=== PATIENT | female | born 1985 | race African-American/Black ===

== ENCOUNTER 2017-06-23 12:20 | Inpatient (IN) | payer OTHER ==
[2017-06-23 12:30] VITALS: BMI 16.5
--- NOTE | 2017-06-23 12:39 | PDOC ---
Attending Attestation - Resident Resident Name: Carlos Wilson - ED Attending Attestation I have performed the following: I have examined & evaluated the patient, The case was reviewed & discussed with the resident, I agree w/resident's findings & plan, Exceptions are as noted - HPI HPI: 06/23/17 13:34 31yo F hx MVP, chronic intermittent CP p/w CP. Took Justine last night at 9pm and a 1/5 of krystal. At 7am this morning, pt began to have chest tightness and LSCP, non radiating non positional non exertional a/w SOB, and lightheadness. Denies N/V, F/C. Took nabumetone for pain, which improved the pain. Pt has intermittent CP for 5 years, used to be monthly, now weekly, CP lasts about 1-3 days. Pain she has today is identical in quality to pain she has intermittently for the last 5 years. Saw PCP on 05/28 who gave her nabumatone for "inflammation " around the heart. Has never seen a supervisor fiber locking, but was just referred to one and is currently being scheduled for an echocardiogram. Not on any OCPs, no recent travel or immobility. She reports drinking 750mL vodka daily but is trying to cut down. - Physicial Exam PE: 06/23/17 13:39 GENERAL: Awake, alert, and fully oriented, in no acute distress HEAD: No signs of trauma EYES: PERRLA, EOMI, sclera anicteric, conjunctiva clear ENT: Auricles normal inspection, hearing grossly normal, nares patent, oropharynx clear without exudates. Moist mucosa NECK: Normal ROM, supple, no lymphadenopathy, JVD, or masses LUNGS: Breath sounds equal, clear to auscultation bilaterally. No wheezes, and no crackles HEART: Regular rate and rhythm, normal S1 and S2, no murmurs, rubs or gallops, + ttp to L chest wall ABDOMEN: Soft, nontender, normoactive bowel sounds. No guarding, no rebound. No masses EXTREMITIES: Normal range of motion, no edema. No clubbing or cyanosis. No cords, erythema, or tenderness NEUROLOGICAL: Normal speech, cranial nerves intact, negative pronator drift, 5/ 5 strength in all 4 extremities, normal sensation to light touch in all 4 extremities, normal cerebellar exam, normal gait, normal reflexes and tone SKIN: Warm, Dry, normal turgor, no rashes or lesions noted. 06/23/17 14:07 Twelve-lead EKG was performed and reviewed by me: NSR, rate, L axis deviation, no FERNIE - Medical Decision Making 06/23/17 14:01 31-year-old female history of MVP presents with acute on chronic chest pain. Exam with reproducible left chest wall pain and otherwise unremarkable. EKG is nonischemic. Differential includes musculoskeletal pain 2/2 reproducibility and improvement of pain with NSAID. Differential also includes pericarditis although EKG with no FL depressions and pain is not positional. ACS also on differential but unlikely as pt has no risk factors Patient meets 0 PERC criteria and thus very unlikely pulmonary embolism. Plan: -labs, including trop -UPT -CXR -toradol -reassess 06/23/17 14:05 I counseled the patient extensively on alcohol abuse and she plans to cut down slowly. I advised her to follow up with her PMD for counseling on how to safely cut down. 06/23/17 15:18 Troponin elevated to 0.2 concerning for ACS versus myocarditis versus cardiomyopathy. Patient dosed a full dose of aspirin and will be admitted to telemetry.
--- NOTE | 2017-06-23 13:13 | PDOC ---
History of Present Illness - General Chief Complaint: Chest Pain Stated Complaint: CHEST PAIN Time Seen by Provider: 06/23/17 12:37 - History of Present Illness Initial Comments: 06/23/17 13:08 31F w/ hx of MVP and chronic intermittent chest pain presenting with chest pain. Pt reports that she took some herson last night at 9pm and drank a 5th of ramiro. She developed chest pain at 7am along with chest tightness on the left side, non-radiating, associated with some SOB and dizziness. She denies headache, nausea, emesis, diaphoresis, fevers, and chills. She took a pill of nabumetone which helped a little. She came in thinking she was having an MN. Pt has been having intermittent chest pain that has been increasing in frequency , now about once a week lasting 1-3 days. She was diagnosed with MVP in 2009. Her PCP prescribed her nabumetone on May 28 for "inflammation around the heart. " She does not have a treasury accountant, and her PCP is scheduling her for an echocardiogram soon. Pt requests help for quitting alcohol. She has never brought this up to her PCP due to embarrassment. 06/23/17 13:16 06/23/17 13:17 Past History - Past Medical History Allergies/Adverse Reactions: Allergies Allergy/AdvReac Type Severity Reaction Status Date / Time No Known Allergies Allergy Verified 06/23/17 12:30 Home Medications: Ambulatory Orders Naproxen [Naprosyn -] 500 mg PO BID 06/23/17 Cardiac Disorders: Yes (MVP) Comment:: 06/23/17 13:13 PMH: MVP PSH: none meds: nabumetone allergies: NKDA family hx: congenital heart disease social hx: smokes 5-6 cigarettes per day x 10 years, drinks 750 of vodka a day and endorses needing an eye county adviser in the morning, started crying when talking about her alcohol consumption - Psycho/Social/Smoking Cessation Hx Suicidal Ideation: No Smoking History: Never smoked Hx Alcohol Use: No Drug/Substance Use Hx: Yes Review of Systems - Review of Systems Comments:: 06/23/17 13:14 GENERAL: No fever, chills, night sweats, or weakness. HEAD, EYES, EARS, NOSE AND THROAT: No change in vision, ear pain, or sore throat CARDIOVASCULAR: + chest pain RESPIRATORY: No cough, wheezing, or hemoptysis. GASTROINTESTINAL: No nausea, vomiting, diarrhea, constipation, or blood in the stool. GENITOURINARY: No dysuria, frequency, or urgency MUSCULOSKELETAL: No joint or muscle swelling or pain. SKIN: No rashes or pruritis ENDOCRINE: No increased thirst. No abnormal weight change NEUROLOGIC: No headache, + dizziness, no loss of consciousness, or change in strength/sensation. *Physical Exam - Vital Signs Last Vital Signs Temp Pulse Resp BP Pulse Ox 99.1 F 95 H 18 145/93 100 06/23/17 12:26 06/23/17 12:26 06/23/17 12:26 06/23/17 12:06/23/17 12:26 - Physical Exam Comments: 06/23/17 13:15 GENERAL: Awake, alert, and fully oriented, in no acute distress HEAD: normocephalic, atraumatic HEENT: mydriasis, nasal congestion NECK: Normal ROM, supple, no lymphadenopathy, JVD, or masses HEART: fast heart rate, no murmurs LUNGS: CTAB, no wheezing, no rales ABDOMEN: Soft, nontender, nondistended, normoactive bowel sounds. No guarding, no rebound. No masses EXTREMITIES: Normal range of motion, no edema. SKIN: Warm, dry, no rashes or lesions noted. NEUROLOGICAL: Cranial nerves II through XII grossly intact. Normal speech, normal gait, no focal sensorimotor deficits ED Treatment Course - LABORATORY CBC & Chemistry Diagram: 06/23/17 13:31 06/23/17 13:31 Medical Decision Making - Medical Decision Making 06/23/17 13:16 31F w/ hx of MVP and chronic intermittent chest pain presenting with acute on chronic chest pain. consistent with her chronic pains. CBC: wnl CMP: high AST Utox: negative for everything CXR: EKG: NSR Pt educated about decreasing her alcohol use slowly and to discuss with her PCP about other resources that are available to help her. troponin: 0.2 CK: elevated Pt was explained that her cardiac enzymes are high. *DC/Admit/Observation/Transfer Diagnosis at time of Disposition: NSTEMI (non-ST elevated myocardial infarction) - Discharge Dispostion Condition at time of disposition: Stable Admit: Yes Decision to Admit order Date/Time: 06/23/17 15:23 - Referrals Referrals: Darren Bell MD [Staff Physician] -
[2017-06-23 13:46] LABS: BASOPHIL 0.6 % (0-2.0); EOSINOPHIL 0.3 % (0-4.5); MCH 28.3 pg (25.7-33.7); MCHC 32.4 g/dl (32.0-36.0); MEAN CELL VOLUME 87.3 fl (80-96); MEAN PLT VOLUME 9.2 fl (7.5-11.1); NEUTROPHILS 74.7 % (42.8-82.8); PLATELET COUNT 137 K/MM3 (134-434); RDW 13.5 % (11.6-15.6); WHITE BLOOD COUNT 10.5 K/mm3 (4.0-10.0)
[2017-06-23] MEDS ORDERED: KETOROLAC TROMETHAMINE 10 MG TABLET PO ONE (13:54)
[2017-06-23 14:13] LABS: ALBUMIN 4.2 g/dl (3.4-5.0); ANION GAP 11 (8-16); BILIRUBIN,TOTAL 0.8 mg/dL (0.2-1.0); CALCIUM 9.1 mg/dL (8.5-10.1); CO2 23 mmol/L (21-32); CREATININE 0.7 mg/dL (0.55-1.02); GLUCOSE,RANDOM 74 mg/dL (74-106); SGOT/AST 225 U/L (15-37); SGPT/ALT 65 U/L (12-78); TOT PROT 7.9 g/dl (6.4-8.2)
[2017-06-23 14:25] LABS: ALK PHOS 57 U/L (45-117)
[2017-06-23] MEDS ORDERED: ASPIRIN 325 MG TABLET PO ONE (14:39)
[2017-06-23 14:45] LABS: CPK 8323 IU/L (26-192)
[2017-06-23 14:49] LABS: URINE APPEARANCE CLEAR; URINE BILIRUBIN NEGATIVE (NEGATIVE); URINE BLOOD NEGATIVE (NEGATIVE); URINE COLOR LTYELLOW; URINE GLUCOSE (UA) NEGATIVE (NEGATIVE); URINE KETONE 2+ (NEGATIVE); URINE LEUK ESTERASE NEGATIVE (NEGATIVE); URINE NITRITE NEGATIVE (NEGATIVE); URINE PROTEIN NEGATIVE (NEGATIVE); URINE UROBILINOGEN NEGATIVE mg/dL (0.2-1.0)
[2017-06-23 14:55] LABS: URINE MARIJUANA THC NEGATIVE ng/ml (CUTOFF=50)
[2017-06-23] MEDS ORDERED: ASPIRIN 325 MG TABLET ONE (15:37)
--- NOTE | 2017-06-23 16:31 | HP ---
CHIEF COMPLAINT: Chest pain/left sided chest tightness and shortness of breath PCP: Dr. Stratton HISTORY OF PRESENT ILLNESS: Patient is a 31 year old female with a significant past medical history of chronic intermittent chest pain, ETOH use and polysubstance abuse. She presents to the ED with persistent left sided chest pain. She states she has this chest pain since April of this year. She describes the left sided chest pain as "chest tightness", non radiating associated with shortness of breath and dizziness. She states that the chest pain lasts for a few hours and usually takes Naproxen twice daily for pain relief. She admits to taking a "herson" a/k/a ecstasy last night and also drank about 1 pint of Ramiro. She further admits to drinking apx 1 pink of beer and vodka on most days of the week (4 out of 7). Her last drink was last night. She states she was diagnosed with MVP in 2009. She does not have a can piler, and her PCP is scheduling her for an echocardiogram soon. ER course was notable for: (1) WBC 10.5 (2) BNP 363.65 (3) CK 8323, Trop 0.20 Recent Travel: denies PAST MEDICAL HISTORY: chronic intermittent chest pain, ETOH use and polysubstance abuse PAST SURGICAL HISTORY: n/a Social History: Smoking: smokes 5-6 cigarettes per day x 10 years Alcohol: drinks 1 pint of beer (ramiro) and vodka 1 pink at least 4 times per week Drugs: Ecstasy, marijuana Family History: Allergies No Known Allergies Allergy (Verified 06/23/17 12:30) HOME MEDICATIONS: Home Medications Medication Instructions Recorded Naproxen [Naprosyn -] 500 mg PO BID 06/23/17 REVIEW OF SYSTEMS CONSTITUTIONAL: Absent: fever, chills, diaphoresis, generalized weakness, malaise, loss of appetite, weight change HEENT: Absent: rhinorrhea, nasal congestion, throat pain, throat swelling, difficulty swallowing, mouth swelling, ear pain, eye pain, visual changes CARDIOVASCULAR: Absent: chest pain, syncope, palpitations, irregular heart rate, lightheadedness , peripheral edema RESPIRATORY: Absent: cough, orthopnea, wheezing, stridor, hemoptysis GASTROINTESTINAL: Absent: abdominal pain, abdominal distension, nausea, vomiting, diarrhea, constipation, melena, hematochezia GENITOURINARY: Absent: dysuria, frequency, urgency, hesitancy, hematuria, flank pain, genital pain MUSCULOSKELETAL: Absent: myalgia, arthralgia, joint swelling, back pain, neck pain SKIN: Absent: rash, itching, pallor HEMATOLOGIC/IMMUNOLOGIC: Absent: easy bleeding, easy bruising, lymphadenopathy, frequent infections ENDOCRINE: Absent: unexplained weight gain, unexplained weight loss, heat intolerance, cold intolerance NEUROLOGIC: Absent: headache, focal weakness or paresthesias, dizziness, unsteady gait, seizure, mental status changes, bladder or bowel incontinence PSYCHIATRIC: Absent: anxiety, depression, suicidal or homicidal ideation, hallucinations. PHYSICAL EXAMINATION Vital Signs - 24 hr 06/23/17 16:06 Temperature 98.0 F Pulse Rate [ 89 Left Apical] Respiratory 16 Rate Blood Pressure 134/78 [Left Arm] O2 Sat by Pulse 98 Oximetry (%) GENERAL: Awake, alert, and fully oriented, in no acute distress. HEAD: Normal with no signs of trauma. EYES: Pupils equal, round and reactive to light, extraocular movements intact, sclera anicteric, conjunctiva clear. No lid lag. EARS, NOSE, THROAT: Ears normal, nares patent, oropharynx clear without exudates. Moist mucous membranes. NECK: Normal range of motion, supple without lymphadenopathy, JVD, or masses. LUNGS: Breath sounds equal, clear to auscultation bilaterally. No wheezes, and no crackles. No accessory muscle use. HEART: Regular rate and rhythm, normal S1 and S2 ABDOMEN: Soft, nontender, not distended, normoactive bowel sounds, no guarding, no rebound, no masses. No hepatomegaly or splenomegaly. MUSCULOSKELETAL: Normal range of motion at all joints. No bony deformities or tenderness. No CVA tenderness. UPPER EXTREMITIES: 2+ pulses, warm, well-perfused. No cyanosis. No clubbing. No peripheral edema. LOWER EXTREMITIES: 2+ pulses, warm, well-perfused. No calf tenderness. No peripheral edema. NEUROLOGICAL: Cranial nerves II-XII intact. Normal speech. Normal gait. PSYCHIATRIC: Cooperative. Good eye contact. Appropriate mood and affect. SKIN: Warm, dry, normal turgor, no rashes or lesions noted, normal capillary refill. ASSESSMENT/PLAN: Patient is a 31 year old female with a significant past medical history of chronic intermittent chest pain, ETOH use and polysubstance abuse. She presents to the ED with persistent left sided chest pain. She states she has this chest pain since April of this year. She describes the left sided chest pain as "chest tightness", non radiating associated with shortness of breath and dizziness. She states that the chest pain lasts for a few hours and usually takes Naproxen twice daily for pain relief. She admits to taking a "herson" a/k/a ecstasy last night and also drank about 1 pint of Ramiro. She further admits to drinking apx 1 pink of beer and vodka on most days of the week (4 out of 7). Her last drink was last night. She states she was diagnosed with MVP in 2009. She does not have a can piler, and her PCP is scheduling her for an echocardiogram soon. On exam, she denies nausea/vomitng, no tremors noted, no paroxysmal sweats, no anxiety or agitation, no tactile disturbances or auditory disturbances. Cardiology: Chest Pain/Chest Tightness/Rule out ACS - acute A/P: Chest discomfort/tightness not reproducible on palpation EKG shows normal sinus rhythm, 89 bpm Monitor on telemonitoring Trend troponins, has elevated cardiac enzymes Echocardiogram Chest Xray Cardiology consult Psyche: ETOH abuse/Polysubstance abuse/Nicotine abuse: A/P: CIWA score 0, no signs of ETOH withdrawal but she needs to be monitored closely Will add Librium PRN, but may need scheduled Librium if has signs of withdrawal Banana bag x 1 Will order Folate and thiamine Nicotine patch Urine tox reviewed F.E.N. Fluids: banana bag x 1 Electrolytes: monitor Nutrition: regular diet Prophylaxis: DVT: ambulatory GI: deferred Disposition: Requires inpatient hospitalization. Full code
[2017-06-23] MEDS ORDERED: ACETAMINOPHEN 325 MG TABLET (FP) PO PRN (17:30)
[2017-06-23] MEDS ORDERED: FOLIC ACID INJECTION - 1 MG, THIAMINE HCL 100 MG, MULTIVIT INJECTION ADULT 10 ML in SOD... IVPB ONE (17:34)
[2017-06-23] MEDS ORDERED: chlordiazePOXIDE HCL 25 MG CAPSULE PO PRN (17:35)
[2017-06-23] MEDS: NICOTINE 14 MG/24 HOURS TOPICAL PATCH TD SCH (20:59)
[2017-06-24] MEDS ORDERED: PT OWN MED DRAWER 7, Y5N ONE (06:32)
[2017-06-24 07:51] LABS: BASOPHIL 0.8 % (0-2.0); EOSINOPHIL 5.9 % (0-4.5); MCH 28.2 pg (25.7-33.7); MCHC 32.6 g/dl (32.0-36.0); MEAN CELL VOLUME 86.4 fl (80-96); MEAN PLT VOLUME 9.7 fl (7.5-11.1); NEUTROPHILS 50.1 % (42.8-82.8); PLATELET COUNT 121 K/MM3 (134-434); RDW 13.1 % (11.6-15.6); WHITE BLOOD COUNT 4.6 K/mm3 (4.0-10.0)
[2017-06-24 08:33] LABS: ALBUMIN 3.3 g/dl (3.4-5.0); ANION GAP 9 (8-16); CALCIUM 8.2 mg/dL (8.5-10.1); CHOLESTEROL 130 mg/dL (50-200); CO2 23 mmol/L (21-32); GLUCOSE,RANDOM 76 mg/dL (74-106); MAGNESIUM 1.8 mg/dL (1.8-2.4); SGOT/AST 169 U/L (15-37)
[2017-06-24 08:52] LABS: ALK PHOS 42 U/L (45-117); BILIRUBIN,TOTAL 0.6 mg/dL (0.2-1.0); CPK 4806 IU/L (26-192); CREATININE 0.7 mg/dL (0.55-1.02); SGPT/ALT 54 U/L (12-78); THYROID STIMULATING HORMONE 1.09 uIU/ml (0.358-3.74); TOT PROT 6.4 g/dl (6.4-8.2); TROPONIN I 0.06 ng/ml (0.00-0.05)
[2017-06-24] MEDS ORDERED: chlordiazePOXIDE HCL 25 MG CAPSULE PO PRN (08:53)
--- NOTE | 2017-06-24 08:58 | PN ---
Physical Exam: SUBJECTIVE: Patient seen and examined at the bedside. She states she had chest pain overnight that was not relieved with Tylenol. States she had body tremors last night but did not tell anyone as she figured they will go away on their own. She admits to being anxious today, slight tremors. States she has these tremors at home when she stops drinking but then drinks and tremors stop. OBJECTIVE: Moderate anxiety on exam, + bilateral hand tremors. Am concerned over her tremors overnight will start on Librium scheduled and consult Dr. Alec NOLEN elevation on cardiac sonographer, will order EKG on ASA BP low but stable Trops 0.20>0.14>0.08>0.06 Vital Signs Period Temp Pulse Resp BP Sys/Lerner Pulse Ox Last 24 Hr 97.7 F-99.2 F 65-89 16-18 97-134/52-78 98-100 GENERAL: Awake, alert, and fully oriented, in no acute distress. HEAD: Normal with no signs of trauma. EYES: Pupils equal, round and reactive to light, extraocular movements intact, sclera anicteric, conjunctiva clear. No lid lag. EARS, NOSE, THROAT: Ears normal, nares patent, oropharynx clear without exudates. Moist mucous membranes. NECK: Normal range of motion, supple without lymphadenopathy, JVD, or masses. LUNGS: Breath sounds equal, clear to auscultation bilaterally. No wheezes, and no crackles. No accessory muscle use. HEART: Regular rate and rhythm, upcoving of ST seen on cardiac sonographer, will confirm with EKG ABDOMEN: Soft, nontender, not distended, normoactive bowel sounds, no guarding, no rebound, no masses. No hepatomegaly or splenomegaly. MUSCULOSKELETAL: Normal range of motion at all joints. No bony deformities or tenderness. No CVA tenderness. UPPER EXTREMITIES: 2+ pulses, warm, well-perfused. No cyanosis. No clubbing. No peripheral edema. LOWER EXTREMITIES: 2+ pulses, warm, well-perfused. No calf tenderness. No peripheral edema. NEUROLOGICAL: Cranial nerves II-XII intact. Normal speech. Normal gait. PSYCHIATRIC: Cooperative. Good eye contact. Appropriate mood and affect. SKIN: Warm, dry, normal turgor, no rashes or lesions noted, normal capillary refill. Laboratory Results - last 24 hr 08/06/23/17 06/24/17 15:38 19:20 01:25 WBC RBC Hgb Hct MCV MCH MCHC RDW Plt Count MPV Neutrophils % Lymphocytes % Monocytes % Eosinophils % Basophils % Sodium Potassium Chloride Carbon Dioxide Anion Gap BUN Creatinine Creat Clearance w eGFR Random Glucose Hemoglobin A1c % Calcium Magnesium Total Bilirubin AST ALT Alkaline Phosphatase Creatine Kinase Troponin I 0.14 H 0.08 H B-Natriuretic Peptide 363.65 H Total Protein Albumin Triglycerides Cholesterol Total LDL Cholesterol HDL Cholesterol TSH 06/24/17 06/24/17 06/24/17 06:30 06:30 06:30 WBC 4.6 D RBC 4.34 Hgb 12.2 D Hct 37.5 MCV 86.4 MCH 28.2 MCHC 32.6 RDW 13.1 Plt Count 121 L MPV 9.7 Neutrophils % 50.1 D Lymphocytes % 33.8 D Monocytes % 9.4 Eosinophils % 5.9 H D Basophils % 0.8 Sodium 141 Potassium 3.9 Chloride 109 H Carbon Dioxide 23 Anion Gap 9 BUN 14 D Creatinine 0.7 Creat Clearance w eGFR > 60 Random Glucose 76 Hemoglobin A1c % 5.4 Calcium 8.2 L Magnesium 1.8 Total Bilirubin 0.6 D AST 169 H D ALT 54 Alkaline Phosphatase 42 L D Creatine Kinase 4806 H Troponin I 0.06 H B-Natriuretic Peptide Total Protein 6.4 Albumin 3.3 L D Triglycerides 55 Cholesterol 130 Total LDL Cholesterol 58 HDL Cholesterol 64 H TSH 1.09 Active Medications Generic Name Dose Route Start Last Admin Trade Name Freq PRN Reason Stop Dose Admin Acetaminophen 650 mg 06/23/17 17:30 06/23/17 21:05 Tylenol - PO 650 mg Q6H PRN Administration FEVER OR PAIN Aspirin 81 mg 06/24/17 10:00 Ecotrin - PO DAILY [facility] Chlordiazepoxide HCl 25 mg 06/23/17 17:35 Librium - PO Q6HPO PRN withdrawal Folic Acid 1 mg 06/24/17 10:00 Folic Acid - PO DAILY [facility] Multivitamins/Minerals/Vitamin C 1 tab 06/24/17 10:00 Tab-A-Vit - PO DAILY [facility] Nicotine 14 mg 06/23/17 19:15 06/23/17 20:59 Nicoderm Patch - TD 14 mg DAILY [facility] Administration ASSESSMENT/PLAN: Patient is a 31 year old female with a significant past medical history of chronic intermittent chest pain, ETOH use and polysubstance abuse. She presents to the ED with persistent left sided chest pain. She states she has this chest pain since April of this year. She describes the left sided chest pain as "chest tightness", non radiating associated with shortness of breath and dizziness. She states that the chest pain lasts for a few hours and usually takes Naproxen twice daily for pain relief. She admits to taking a "herson" a/k/a ecstasy last night and also drank about 1 pint of Michelle. She further admits to drinking apx 1 pink of beer and vodka on most days of the week (4 out of 7). Her last drink was on 06/22/2017. She states she was diagnosed with MVP in 2009. She does not have a director of graduate medical education, and her PCP was scheduling her for an echocardiogram soon. Cardiology: Chest Pain/Chest Tightness/Rule out ACS - acute A/P: Chest discomfort/tightness not reproducible on palpation but continues today EKG today shows NSR, unchanged from yesterday's EKG Continue to monitor on tele Trops 0.20>0.14>0.08>0.06 Echocardiogram ordered Cardiology consulted Psyche: ETOH abuse/Polysubstance abuse/Nicotine abuse: A/P: CIWA score 8, had subjective tremors overnight, anxiety and worsening pain (headache) Put on Libirum protocol with PRN Librium as needed Given banana bag x 1 yesterday Daily Folate and thiamine Nicotine patch Dr. Alec Hamlin consult F.E.N. Fluids: tolerating PO Electrolytes: monitor Nutrition: regular diet Prophylaxis: DVT: Lovenox 40mg daily GI: deferred Disposition: Requires inpatient hospitalization. Full code. Visit type - Emergency Visit Emergency Visit: Yes ED Registration Date: 06/23/17 Care time: The patient presented to the Emergency Department on the above date and was hospitalized for further evaluation of their emergent condition. - New Patient This patient is new to me today: No - Critical Care Critical Care patient: No - Discharge Referral Referred to [facility] Med P.C.: No
[2017-06-24] MEDS: NICOTINE 14 MG/24 HOURS TOPICAL PATCH TD SCH (09:48)
[2017-06-24] MEDS: MULTIVITAMINS (DAILY MVI) TABLET (FP) PO SCH (09:49)
[2017-06-24] MEDS: ENOXAPARIN NA (PORCINE) 40 MG/0.4 ML DISP.SYRIN SQ SCH (09:49)
[2017-06-24] MEDS: ASPIRIN COATED 81 MG TABLET.EC PO SCH (09:49)
[2017-06-24] MEDS: FOLIC ACID 1 MG TABLET (FP) PO SCH (09:49)
[2017-06-24] MEDS: chlordiazePOXIDE HCL 25 MG CAPSULE PO SCH ×3 (11:26→22:28)
[2017-06-24] MEDS ORDERED: traMADol HCL 50 MG TABLET PO PRN (12:26)
[2017-06-24 13:39] LABS: ALBUMIN 3.3 g/dl (3.4-5.0); ALK PHOS 47 U/L (45-117); ANION GAP 8 (8-16); BILIRUBIN,TOTAL 0.5 mg/dL (0.2-1.0); CALCIUM 8.3 mg/dL (8.5-10.1); CO2 24 mmol/L (21-32); CREATININE 0.7 mg/dL (0.55-1.02); GLUCOSE,RANDOM 96 mg/dL (74-106); SGOT/AST 162 U/L (15-37); SGPT/ALT 54 U/L (12-78); TOT PROT 6.2 g/dl (6.4-8.2)
--- NOTE | 2017-06-24 15:43 | CON.CARD ---
Consult Consult Specialty:: Cardiology - History of Present Illness Chief Complaint: Chest pain History of Present Illness: This is a 31 year old female with a PMH of MVP, and ETOH as well as substance abuse. She took "Justine" which is MDMA, a psychoactive drug which can cause increased BP and heart rate leading to chest pain, palpitations, and positive cardiac enzymes. She presented with lest sided chest pain which was non radiating and not related to exertion. Her troponin levels were 0.14>0.08>0.06. Saw PCP on 05/28 who gave her nabumatone for "inflammation" around the heart. She reports drinking 750mL vodka daily. Present EKG was NSR at 84 BPM with no acute changes. Presently she is comfortable. - Past Medical History ...LMP: 05/30/17 ...: No - Alcohol/Substance Use Hx Alcohol Use: Yes - Smoking History Smoking history: Current every day smoker Have you smoked in the past 12 months: Yes Aproximately how many cigarettes per day: 6 Home Medications - Allergies Allergies/Adverse Reactions: Allergies Allergy/AdvReac Type Severity Reaction Status Date / Time No Known Allergies Allergy Verified 06/23/17 12:30 - Home Medications Home Medications: Ambulatory Orders Naproxen [Naprosyn -] 500 mg PO BID 06/23/17 Review of Systems Unable to obtain ROS, reason: As per HPI Vital Signs: Vital Signs Temperature 98 F 06/24/17 14:00 Pulse Rate 63 06/24/17 14:00 Respiratory Rate 20 06/24/17 14:00 Blood Pressure 103/61 06/24/17 14:00 O2 Sat by Pulse Oximetry (%) 96 06/24/17 09:00 Constitutional: Yes: No Distress Neck: Yes: WNL Respiratory: Yes: CTA Bilaterally Gastrointestinal: Yes: Soft Cardiovascular: Yes: Regular Rate and Rhythm Heart Sounds: Yes: S1, S2 (No MRHG) Extremities: Yes: WNL Edema: No Neurological: Yes: Alert, Oriented (Grossly non focal) - Other Data Labs, Other Data: CBC, BMP 06/24/17 06:30 06/24/17 12:55 Troponin, BNP 06/23/17 06/24/17 06/24/17 19:20 01:25 06:30 Troponin I 0.14 H 0.08 H 0.06 H Troponin, BNP 06/23/17 06/24/17 06/24/17 19:20 01:25 06:30 Troponin I 0.14 H 0.08 H 0.06 H Assessment/Plan Chest pain Mildly positive troponin level initially Most likely do to the cardiovascular effects of the MDMA she took, mainly transient spikes in HR and BD. Would obtain and echocardiogram to determine LV function and assess for MVP Would not do a stress test at this time Would check ESR to assess for pericarditis (myopericarditis given enzymes) even though the EKG is not suggestive. Continue Naproxen for now Will follow with you
--- NOTE | 2017-06-24 20:15 | EKG ---
Test Reason : Blood Pressure : / mmHG Vent. Rate : 062 BPM Atrial Rate : 062 BPM P-R Int : 172 ms QRS Dur : 068 ms QT Int : 480 ms P-R-T Axes : 055 -61 054 degrees QTc Int : 487 ms NORMAL SINUS RHYTHM LEFT AXIS DEVIATION PROLONGED QT ABNORMAL ECG WHEN COMPARED WITH ECG OF 23-JUN-2017 12:30, NO SIGNIFICANT CHANGE WAS FOUND Confirmed by NAIMA PAUL MD ([id number]) on 06/24/2017 8:15:06 PM Referred By: Saeed EUBANKS Confirmed By:NAIMA PAUL MD
[2017-06-24] MEDS: ATORVASTATIN CA 10 MG TABLET (FP) PO SCH (22:29)
[2017-06-25] MEDS: chlordiazePOXIDE HCL 25 MG CAPSULE PO SCH ×4 (07:12→22:16)
[2017-06-25 07:17] LABS: BASOPHIL 0.7 % (0-2.0); EOSINOPHIL 6.1 % (0-4.5); MCH 28.3 pg (25.7-33.7); MCHC 32.6 g/dl (32.0-36.0); MEAN CELL VOLUME 86.9 fl (80-96); MEAN PLT VOLUME 9.5 fl (7.5-11.1); NEUTROPHILS 46.9 % (42.8-82.8); PLATELET COUNT 121 K/MM3 (134-434); RDW 13.2 % (11.6-15.6); WHITE BLOOD COUNT 4.2 K/mm3 (4.0-10.0)
[2017-06-25 07:53] LABS: ALBUMIN 3.3 g/dl (3.4-5.0); ANION GAP 7 (8-16); BILIRUBIN,TOTAL 0.6 mg/dL (0.2-1.0); CALCIUM 8.1 mg/dL (8.5-10.1); CO2 25 mmol/L (21-32); CREATININE 0.6 mg/dL (0.55-1.02); GLUCOSE,RANDOM 89 mg/dL (74-106); SGOT/AST 140 U/L (15-37); SGPT/ALT 52 U/L (12-78); TOT PROT 6.3 g/dl (6.4-8.2)
[2017-06-25 07:54] LABS: ALK PHOS 44 U/L (45-117)
[2017-06-25] MEDS: FOLIC ACID 1 MG TABLET (FP) PO SCH (09:20)
[2017-06-25] MEDS: NICOTINE 14 MG/24 HOURS TOPICAL PATCH TD SCH (09:20)
[2017-06-25] MEDS: ENOXAPARIN NA (PORCINE) 40 MG/0.4 ML DISP.SYRIN SQ SCH (09:20)
[2017-06-25] MEDS: MULTIVITAMINS (DAILY MVI) TABLET (FP) PO SCH (09:20)
[2017-06-25] MEDS: ASPIRIN COATED 81 MG TABLET.EC PO SCH (09:20)
--- NOTE | 2017-06-25 11:30 | PN ---
Physical Exam: SUBJECTIVE: Patient seen and examined at the bedside. Denies any further tremors, or anxiety OBJECTIVE: Echo pending read Cardiology notes reviewed Vital Signs Period Temp Pulse Resp BP Sys/Lerner Pulse Ox Last 24 Hr 97.7 F-98.2 F 63-72 14-20 91-106/55-64 100-100 GENERAL: Awake, alert, and fully oriented, in no acute distress. HEAD: Normal with no signs of trauma. EYES: Pupils equal, round and reactive to light, extraocular movements intact, sclera anicteric, conjunctiva clear. No lid lag. EARS, NOSE, THROAT: Ears normal, nares patent, oropharynx clear without exudates. Moist mucous membranes. NECK: Normal range of motion, supple without lymphadenopathy, JVD, or masses. LUNGS: Breath sounds equal, clear to auscultation bilaterally. No wheezes, and no crackles. No accessory muscle use. HEART: Regular rate and rhythm ABDOMEN: Soft, nontender, not distended, normoactive bowel sounds, no guarding, no rebound, no masses. MUSCULOSKELETAL: Normal range of motion at all joints. No bony deformities or tenderness. No CVA tenderness. UPPER EXTREMITIES: 2+ pulses, warm, well-perfused. No cyanosis. No clubbing. No peripheral edema. LOWER EXTREMITIES: 2+ pulses, warm, well-perfused. No calf tenderness. No peripheral edema. NEUROLOGICAL: Cranial nerves II-XII intact. Normal speech. Normal gait. PSYCHIATRIC: Cooperative. Good eye contact. Appropriate mood and affect. SKIN: Warm, dry, normal turgor, no rashes or lesions noted, normal capillary refill. Laboratory Results - last 24 hr 06/24/17 06/25/17 06/25/17 12:55 05:35 05:35 WBC 4.2 RBC 4.46 Hgb 12.6 Hct 38.8 MCV 86.9 MCH 28.3 MCHC 32.6 RDW 13.2 Plt Count 121 L MPV 9.5 Neutrophils % 46.9 Lymphocytes % 36.5 Monocytes % 9.8 Eosinophils % 6.1 H Basophils % 0.7 Sodium 141 141 Potassium 3.8 4.3 Chloride 109 H 109 H Carbon Dioxide 24 25 Anion Gap 8 7 L BUN 13 9 D Creatinine 0.7 0.6 Creat Clearance w eGFR > 60 > 60 Random Glucose 96 D 89 Calcium 8.3 L 8.1 L Total Bilirubin 0.5 0.6 AST 162 H 140 H ALT 54 52 Alkaline Phosphatase 47 44 L Total Protein 6.2 L 6.3 L Albumin 3.3 L 3.3 L Active Medications Generic Name Dose Route Start Last Admin Trade Name Freq PRN Reason Stop Dose Admin Acetaminophen 650 mg 06/23/17 17:30 06/23/17 21:05 Tylenol - PO 650 mg Q6H PRN Administration FEVER OR PAIN Aspirin 81 mg 06/24/17 10:00 06/25/17 09:20 Ecotrin - PO 81 mg DAILY [facility] Administration Atorvastatin Calcium 10 mg 06/24/17 22:00 06/24/17 22:29 Lipitor - PO 10 mg HS [facility] Administration Chlordiazepoxide HCl 25 mg 06/24/17 08:53 Librium - PO 06/27/17 08:52 Q4H PRN WITHDRAWAL(CONT SUBST) Chlordiazepoxide HCl 25 mg 06/25/17 11:00 Librium - PO 06/26/17 05:01 [id number] [facility] Chlordiazepoxide HCl 15 mg 06/26/17 11:00 Librium - PO 06/27/17 05:01 P2F-OAF [facility] Enoxaparin Sodium 40 mg 06/24/17 10:00 06/25/17 09:20 Lovenox - SQ 40 mg DAILY [facility] Administration Folic Acid 1 mg 06/24/17 10:00 06/25/17 09:20 Folic Acid - PO 1 mg DAILY [facility] Administration Multivitamins/Minerals/Vitamin C 1 tab 06/24/17 10:00 06/25/17 09:20 Tab-A-Vit - PO 1 tab DAILY [facility] Administration Nicotine 14 mg 06/23/17 19:15 06/25/17 09:20 Nicoderm Patch - TD 14 mg DAILY [facility] Administration Tramadol HCl 50 mg 06/24/17 12:26 Ultram - PO Q8H PRN PAIN ASSESSMENT/PLAN: Patient is a 31 year old female with a significant past medical history of chronic intermittent chest pain, ETOH use and polysubstance abuse. She presents to the ED with persistent left sided chest pain. She states she has this chest pain since April of this year. She describes the left sided chest pain as "chest tightness", non radiating associated with shortness of breath and dizziness. She states that the chest pain lasts for a few hours and usually takes Naproxen twice daily for pain relief. She admits to taking a "herson" a/k/a ecstasy last night and also drank about 1 pint of Michelle. She further admits to drinking apx 1 pink of beer and vodka on most days of the week (4 out of 7). Her last drink was on 06/22/2017. She states she was diagnosed with MVP in 2009. 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 Cardiology: Chest Pain/Chest Tightness/Rule out ACS - ACS ruled out/chest pain resolved A/P: Serial EKGs today shows NSR Trops 0.20>0.14>0.08>0.06 Echocardiogram reviewed Cardiology evaluated, notes reviewed Chest pain likely secondary to polysubstance abuse ESR normal As per cardiology, no further workup needed d/c telemonitoring Psyche: ETOH abuse/Polysubstance abuse/Nicotine abuse: A/P: On Librium protocol Daily Folate and thiamine Dr. Alec Hamlin consult F.E.N. Fluids: tolerating PO Electrolytes: monitor Nutrition: regular diet Prophylaxis: DVT: Lovenox 40mg daily GI: deferred Disposition: Requires inpatient hospitalization. Full code. Visit type - Emergency Visit Emergency Visit: Yes ED Registration Date: 06/23/17 Care time: The patient presented to the Emergency Department on the above date and was hospitalized for further evaluation of their emergent condition. - New Patient This patient is new to me today: No - Critical Care Critical Care patient: No - Discharge Referral Referred to [facility] Med P.C.: No
--- NOTE | 2017-06-25 14:33 | PN ---
Progress Note, Physician Chief Complaint: No complaints at this time No chest pain Tele: uneventful History of Present Illness: This is a 31 year old female with a PMH of MVP, and ETOH as well as substance abuse. She took "Justine" which is MDMA, a psychoactive drug which can cause increased BP and heart rate leading to chest pain, palpitations, and positive cardiac enzymes. She presented with lest sided chest pain which was non radiating and not related to exertion. Her troponin levels were 0.14>0.08>0.06. Saw PCP on 05/28 who gave her nabumatone for "inflammation" around the heart. She reports drinking 750mL vodka daily. Present EKG was NSR at 84 BPM with no acute changes. - Current Medication List Current Medications: Active Medications Acetaminophen (Tylenol -) 650 mg PO Q6H PRN PRN Reason: FEVER OR PAIN Last Admin: 06/23/17 21:05 Dose: 650 mg Aspirin (Ecotrin -) 81 mg PO DAILY [facility] Last Admin: 06/25/17 09:20 Dose: 81 mg Atorvastatin Calcium (Lipitor -) 10 mg PO HS [facility] Last Admin: 06/24/17 22:29 Dose: 10 mg Chlordiazepoxide HCl (Librium -) 25 mg PO Q4H PRN PRN Reason: WITHDRAWAL(CONT SUBST) Stop: 06/27/17 08:52 Chlordiazepoxide HCl (Librium -) 25 mg PO [id number] [facility] Stop: 06/26/17 05:01 Last Admin: 06/25/17 12:00 Dose: 25 mg Chlordiazepoxide HCl (Librium -) 15 mg PO [id number] [facility] Stop: 06/27/17 05:01 Enoxaparin Sodium (Lovenox -) 40 mg SQ DAILY [facility] Last Admin: 06/25/17 09:20 Dose: 40 mg Folic Acid (Folic Acid -) 1 mg PO DAILY [facility] Last Admin: 06/25/17 09:20 Dose: 1 mg Multivitamins/Minerals/Vitamin C (Tab-A-Vit -) 1 tab PO DAILY [facility] Last Admin: 06/25/17 09:20 Dose: 1 tab Nicotine (Nicoderm Patch -) 14 mg TD DAILY [facility] Last Admin: 06/25/17 09:20 Dose: 14 mg Tramadol HCl (Ultram -) 50 mg PO Q8H PRN PRN Reason: PAIN - Objective Vital Signs: Vital Signs Temperature 98.2 F 06/25/17 09:18 Pulse Rate 68 06/25/17 09:18 Respiratory Rate 14 06/25/17 09:18 Blood Pressure 98/58 06/25/17 09:18 O2 Sat by Pulse Oximetry (%) 100 06/25/17 09:00 Constitutional: Yes: No Distress Neck: Yes: WNL Cardiovascular: Yes: Regular Rate and Rhythm, S1, S2. No: JVD, Murmur Respiratory: Yes: CTA Bilaterally Gastrointestinal: Yes: WNL Edema: No Labs: CBC, BMP 06/25/17 05:35 06/25/17 05:35 - ....Imaging EKG: Image Reviewed Problem List - Problems (1) Chest pain Code(s): R07.9 - CHEST PAIN, UNSPECIFIED Qualifiers: Chest pain type: unspecified Qualified Code(s): R07.9 - Chest pain, unspecified (2) Elevated troponin Code(s): R74.8 - ABNORMAL LEVELS OF OTHER SERUM ENZYMES Assessment/Plan This is a 31 year old female with a PMH of MVP, and ETOH as well as substance abuse. She took "Justine" which is MDMA, a psychoactive drug which can cause increased BP and heart rate leading to chest pain, palpitations, and positive cardiac enzymes. She presented with lest sided chest pain which was non radiating and not related to exertion. Her troponin levels were 0.14>0.08>0.06. Saw PCP on 05/28 who gave her nabumatone for "inflammation" around the heart. She reports drinking 750mL vodka daily. Present EKG was NSR at 84 BPM with no acute changes. 1) Chest pain with minimally elevated troponins Her labs demonstrated minimally elevated troponin of 0.14 down to 0.06 with atypical chest pain. This finding along with symptoms were likely related to her substance abuse. MDMA can cause spikes in HR and BP. EKG unremarkable with no signs of pericarditis. ESR is normal. Echocardiogram unremarkable with redundant MV anterior leaflet but no clear evidence of MVP. No further cardiac testing at this time. Abstain from etoh and MDMA. No events on telemetry which can be d/c'd Will sign off. Please call with any further questions.
--- NOTE | 2017-06-25 17:44 | CONSULT ---
Consult Detox [facility] Reason for Current Admission/Consult: 31 y/o f pt with h/o alcohol dependency and Herson (MDMA)abuse . - History History of Present Illness: pt with h/o daily alcohol dependency reports drinking Vodka 1/2 -1 Pt/d and greater amounts on the weekend . Pt reports using Herson infrequently. States she has used cannabis in the past but none at this time . - History Source History Provided By: Patient Limitations to Obtaining History: No Limitations - Alcohol/Substance Use Hx Alcohol Use: Yes Hx Substance Use: Yes (herson ,marijuana) Hx Substance Use Treatment: Yes ([facility]) - Current Drug/Alcohol Use Alcohol Route: Oral Frequency: Daily Amount used: vodka 1/2 -1 pt /d;beer 1 can /d; cognac 1/2 liter on weekends Age of first use: 22 Date of Last Use: 06/22/17 - Past Medical History ...LMP: 05/30/17 ...: No - Significant Medical Findings: 31 y/o f pt aox3 in nad cooperative with exam . responding appropriately felling sluggish no termors no diaphoresis no hallucinations no sz's CIWA Score - CIWA Score Nausea/Vomitin-Mild Nausea/No Vomiting Muscle Tremors: 1-None Visible, but [place] Anxiety: 1-Mildly Anxious Agitation: 0-Normal Activity Paroxysmal Sweats: 1-Minimal Palms Moist Orientation: 0-Oriented Tacttile Disturbances: 1-Very Mild Itch/Numbness Auditory Disturbances: 0-None Visual Disturbances: 0-None Headache: 0-None Present CIWA-Ar Total Score: 5 Assessment Plan - Diagnosis (1) Chest pain Status: Acute Qualifiers: Chest pain type: unspecified Qualified Code(s): R07.9 - Chest pain, unspecified (2) Chronic alcoholism Status: Chronic Comment: pt aware she has a drinking problem and will return to out pt. treatment at [facility]. (3) MDMA abuse Status: Acute - Plan Plan: complete detox reimen with librium in tapering doses f/up with out patient treatment program at [facility]; pt. amenable to re-starting program. - Medication Detox Regimen/Protocol: Librium
[2017-06-25] MEDS: ATORVASTATIN CA 10 MG TABLET (FP) PO SCH (22:16)
[2017-06-26] MEDS: chlordiazePOXIDE HCL 25 MG CAPSULE PO SCH (05:01)
[2017-06-26 07:28] LABS: BASOPHIL 0.7 % (0-2.0); EOSINOPHIL 4.7 % (0-4.5); MCH 28.2 pg (25.7-33.7); MCHC 32.7 g/dl (32.0-36.0); MEAN CELL VOLUME 86.3 fl (80-96); MEAN PLT VOLUME 9.3 fl (7.5-11.1); NEUTROPHILS 48.4 % (42.8-82.8); PLATELET COUNT 122 K/MM3 (134-434); RDW 12.8 % (11.6-15.6)
[2017-06-26 07:55] LABS: ALBUMIN 3.2 g/dl (3.4-5.0); ANION GAP 6 (8-16); CALCIUM 8.5 mg/dL (8.5-10.1); CO2 26 mmol/L (21-32); GLUCOSE,RANDOM 85 mg/dL (74-106)
[2017-06-26 08:00] LABS: ALK PHOS 45 U/L (45-117); BILIRUBIN,TOTAL 0.5 mg/dL (0.2-1.0); CREATININE 0.5 mg/dL (0.55-1.02); SGOT/AST 118 U/L (15-37); SGPT/ALT 49 U/L (12-78); TOT PROT 6.5 g/dl (6.4-8.2)
[2017-06-26] MEDS: ENOXAPARIN NA (PORCINE) 40 MG/0.4 ML DISP.SYRIN SQ SCH (10:00)
[2017-06-26] MEDS: chlordiazePOXIDE 5 MG CAPSULE PO SCH ×2 (10:00→17:36)
[2017-06-26] MEDS: NICOTINE 14 MG/24 HOURS TOPICAL PATCH TD SCH (10:01)
[2017-06-26] MEDS: ASPIRIN COATED 81 MG TABLET.EC PO SCH (10:01)
[2017-06-26] MEDS: MULTIVITAMINS (DAILY MVI) TABLET (FP) PO SCH (10:01)
[2017-06-26] MEDS: FOLIC ACID 1 MG TABLET (FP) PO SCH (10:01)
--- NOTE | 2017-06-26 14:10 | DS ---
Physical Exam: SUBJECTIVE: Patient seen and examined at the bedside. No further chest pain, denies shortness of breath. She is eager to start her new job at the [employer] and is in agreement to abstain from any further ecstasy use or alcohol use. Refusing to start any rehab either inpatient or outpatient. OBJECTIVE: I will discharge patient tomorrow after her last dose of Librium. She was cleared by cardiology for discharge Patient is to follow up with her PCP within 1 week after discharge. Vital Signs Period Temp Pulse Resp BP Sys/Lerner Pulse Ox Last 24 Hr 97.6 F-98.1 F 64-80 16-20 96-110/49-70 100-100 PHYSICAL EXAM GENERAL: The patient is awake, alert, and fully oriented, in no acute distress. HEAD: Normal with no signs of trauma. EYES: PERRL, extraocular movements intact, sclera anicteric, conjunctiva clear. ENT: Ears normal, nares patent, oropharynx clear without exudates, moist mucous membranes. NECK: Trachea midline, full range of motion, supple. LABDOMEN: Soft, nontender, nondistended, normoactive bowel sounds, no guarding, no rebound, no hepatosplenomegaly, no masses. EXTREMITIES: 2+ pulses, warm, well-perfused, no edema. NEUROLOGICAL: Cranial nerves II through XII grossly intact. Normal speech, gait not observed. PSYCH: Normal mood, normal affect. SKIN: Warm, dry, normal turgor, no rashes or lesions noted. LABS Laboratory Results - last 24 hr 06/26/17 06/26/17 06:00 06:00 WBC 4.0 RBC 4.34 Hgb 12.2 Hct 37.4 MCV 86.3 MCH 28.2 MCHC 32.7 RDW 12.8 Plt Count 122 L MPV 9.3 Neutrophils % 48.4 Lymphocytes % 37.2 Monocytes % 9.0 Eosinophils % 4.7 H Basophils % 0.7 Sodium 138 Potassium 4.0 Chloride 106 Carbon Dioxide 26 Anion Gap 6 L BUN 11 D Creatinine 0.5 L Creat Clearance w eGFR > 60 Random Glucose 85 Calcium 8.5 Total Bilirubin 0.5 AST 118 H ALT 49 Alkaline Phosphatase 45 Total Protein 6.5 Albumin 3.2 L HOSPITAL COURSE: Date of Admission:06/23/17 Date of Discharge: 06/27/17 Patient is a 31 year old female with a significant past medical history of chronic intermittent chest pain, ETOH use and polysubstance abuse. She presents to the ED with persistent left sided chest pain. She states she has this chest pain since April of this year. She describes the left sided chest pain as "chest tightness", non radiating associated with shortness of breath and dizziness. She states that the chest pain lasts for a few hours and usually takes Naproxen twice daily for pain relief. She admits to taking a "herson" a/k/a ecstasy the night prior to admission and admits to drinking a 1 pint of beer and/or vodka on most days of the week (4 out of 7). Drinks heavier on weekends. She states she was diagnosed with MVP in 2009. 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 Cardiology: Non-ST Elevated myocardial infarction/ACS ruled out/chest pain resolved A/P: Trops 0.20>0.14>0.08>0.06 No further chest pain, no shortness of breath during hospitalization She admits to ecstasy and abuse of alcohol Serial EKGs were unremarkable, without any signs of acute DC ESR is normal Echo reviewed Telemonitoring discontinued No further cardiac testing as per cardiology Patient is to follow up with her PCP within 1 week of discharge She was counseled on abstaining from ETOH, polysubstancea abuse and smoking cessation She is refusing outpatient/inpatient rehab Vitals are stable, labs are stable Discharge tomorrow once she completes her last dose of Libirium. Patient in agreement with plan. Psyche: ETOH abuse/Polysubstance abuse/Nicotine abuse: A/P: On Librium protocol - last dose tomorrow in the a.m. Daily Folate and thiamine Dr. Alec Hamlin following Disposition: Discharge tomorrow morning after her 5.am. dose of Librium. New medications; ASA, Lipitor, Folic acid, multivitamin Minutes to complete discharge: 60 Discharge Summary Reason For Visit: NON-ST ELEVATED MYOCARDIAL INFARCTION Current Active Problems Chest pain (Acute) Elevated troponin (Acute) MDMA abuse (Acute) NSTEMI (non-ST elevated myocardial infarction) (Acute) Chronic alcoholism (Chronic) Condition: Stable - Instructions Referrals: Darren Bell MD [Staff Physician] - - Home Medications Comprehensive Discharge Medication List: Ambulatory Orders Naproxen [Naprosyn -] 500 mg PO BID 06/23/17 This patient is new to me today: No Emergency Visit: Yes ED Registration Date: 06/23/17 Care time: The patient presented to the Emergency Department on the above date and was hospitalized for further evaluation of their emergent condition. Critical Care patient: No - Discharge Referral Referred to [facility] Med [facility].: No
[2017-06-26 18:57] VITALS: BP 101/64; PULSE 80; TEMP 97.7
== END 2017-06-26 19:17 | disposition home or self-care (01) | DRG 775 ==
LOC: JER 12:20 → JERBED 15:25 → J4W 16:52 → OBSVTOIN 17:30 → J8W 06-26 03:30
PROVIDERS: ADMIT Internal Medicine; ATTEND Nurse Practitioner Family
PROC: HZ2ZZZZ Detoxification Services for Substance Abuse Treatment (ICD-10-PCS; principal; 2017-06-23)
DX: F19.10 Other psychoactive substance abuse, uncomplicated (principal); R07.89 Other chest pain; I34.1 Nonrheumatic mitral (valve) prolapse; F12.10 Cannabis abuse, uncomplicated; F17.210 Nicotine dependence, cigarettes, uncomplicated; F41.8 Other specified anxiety disorders; F10.20 Alcohol dependence, uncomplicated; G25.2 Other specified forms of tremor; Z68.1 Body mass index [BMI] 19.9 or less, adult
CPT/HCPCS: 36415; 71010-TC; 80053; 80061; 80307; 81003; 82553; 83036; 83721; 83735; 83880; 84443; 84484; 84703; 85025; 85027; 85651; 93005; 93010; 93306-TC; 99285-25; G0378

== ENCOUNTER 2021-10-18 15:43 | Emergency (ER) | payer OTHER ==
[2021-10-18 16:10] VITALS: BP 114/64
[2021-10-18] MEDS ORDERED: IBUPROFEN 400 MG TABLET (FP) PO ONE ×2 (17:27→17:39)
[2021-10-18 19:21] VITALS: PULSE 90; TEMP 99
== END 2021-10-18 19:21 | disposition home or self-care (01) ==
LOC: JER 15:43
DX: J06.9 Acute upper respiratory infection, unspecified (principal)
CPT/HCPCS: 87651; 87804; 87807; 99283-25; C9803; U0003; U0005